=== PATIENT | male | born 1965 | race Caucasian/White ===

== ENCOUNTER → 2020-06-11 | Outpatient (CLI) | payer OTHER ==
--- NOTE | 2020-06-11 19:08 | MR ---
EXAMINATION TYPE: MR knee LT wo con DATE OF EXAM: 06/11/2020 COMPARISON: Radiograph 06/04/2020 HISTORY: 55-year-old male with left knee pain TECHNIQUE: Multiplanar, multisequence imaging of the left knee is performed without IV contrast. FINDINGS: The ACL, PCL, and MCL are intact. There is edema along the myotendinous junction of the popliteus and additional edema within its muscl e belly. Otherwise, the LCL complex appears intact. There is prominent degenerative signal throughout the lateral meniscus without discrete tear this antonio e. Overall lateral compartment articular cartilage is maintained. There is a complex, multidirectional tear extending throughout the medial meniscus. The body of the m edial meniscus is macerated. There is full-thickness cartilage defect along the mid to posterior weightbearing aspect of the media l femoral condyle measuring 4.5 mm wide and 1.7 cm AP. Underlying subchondral cystic change and mild edema. Additional moderate to severe irregular cartilage loss along the anterior to mid weightbearing aspect of the medial femoral condyle with flattening and irregularity of the subchondral bone, associated s ubchondral cystic change, and edema. Additional area of articular surface depression along the mid peripheral aspect of the medial femoral condyle. Moderate to severe cartilage loss along the superior half mid patella. Mild diffuse thinning along jazmyne th medial and lateral patellar facets. Edematous change within the suprapatellar fat pad. Extensor mechanism is intact. Nonspecific subcutaneous edema anteriorly. Small knee joint effusion. Moderate to large sized leaking Flores's cyst measuring 6.6 cm long by 3.5 cm wide.. Normal popliteal artery anatomy. Mild generalized muscle atrophy. No suspicious bone marrow placement . IMPRESSION: 1. Severe medial compartmental osteoarthrosis especially across the mid aspect of the medial femoral condyle with multiple areas of full-thickness cartilage loss. Accompanying irregularity of the subcho ndral bone plate and reactive marrow edema of the medial femoral condyle. 2. Complex tear throughout the medial meniscus. The body of the meniscus is diffusely macerated. 3. Severe cartilage loss along the superior half of the mid patella. 4. Mild to moderate popliteus muscle strain. 5. Moderate to large sized 6.6 cm leaking Flores's cyst. 6. Edema within the suprapatellar fat pad may be seen in the setting of fat pad impingement syndrome. Clinically correlate.
== END | disposition home or self-care (01) ==
LOC: RADMRIMAIN 13:08
PROVIDERS: ATTEND Orthopaedic Surgery
DX: S83.232A Complex tear of medial meniscus, current injury, left knee, initial encounter (principal); S86.812A Strain of other muscle(s) and tendon(s) at lower leg level, left leg, initial encounter; M17.12 Unilateral primary osteoarthritis, left knee; M71.22 Synovial cyst of popliteal space [Baker], left knee

== ENCOUNTER → 2020-11-20 | Outpatient (CLI) | payer OTHER ==
[2020-11-20 11:21] LABS: Basophils # (A) 0.1 k/uL (0-0.2); Basophils % (A) 1 %; Eosinophils # (A) 0.3 k/uL (0-0.7); Eosinophils % (A) 5 %; HCT 51.7 % (39.0-53.0); HGB 17.3 gm/dL (13.0-17.5); Lymphocytes # (A) 2.8 k/uL (1.0-4.8); Lymphocytes % (A) 42 %; MCH 32.9 pg (25.0-35.0); MCHC 33.5 g/dL (31.0-37.0); MCV 98.2 fL (80.0-100.0); Mean Platelet Volume 7.4; Monocytes # (A) 0.4 k/uL (0-1.0); Monocytes % (A) 6 %; Neutrophils # (A) 2.9 k/uL (1.3-7.7); Neutrophils % (A) 44 %; Platelet Count 230 k/uL (150-450); RBC 5.26 m/uL (4.30-5.90); RDW 13.2 % (11.5-15.5); WBC 6.6 k/uL (3.8-10.6)
[2020-11-20 11:36] LABS: Potassium 4.6 mmol/L (3.5-5.1)
== END | disposition home or self-care (01) ==
LOC: LABPAT 10:06
PROVIDERS: ATTEND Orthopaedic Surgery
DX: Z01.818 Encounter for other preprocedural examination (principal); M23.92 Unspecified internal derangement of left knee
CPT/HCPCS: 80051; 85025; 93005

== ENCOUNTER 2020-11-27 08:56 | Day surgery (SDC) | payer OTHER ==
[2020-11-26 08:17] VITALS: BMI 32.2
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
[~2020-11-27 08:56] MED LIST: DEXAMETHASONE SOD PHOSPHATE 4 MG/ML 1 ML VIAL IV PRN; LACTATED RINGERS 1,000 ML IV SCH; MIDAZOLAM 2 MG/2 ML VIAL IV PRN; ONDANSETRON 4 MG/2 ML VIAL IVP PRN; SCOPOLAMINE 1.5MG/72HR PATCH TRANSDERM PRN; ceFAZolin 3 GM in SODIUM CHLORIDE 0.9% 100 ML IVPB PRN
[2020-11-27] MEDS ORDERED: LIDOCAINE 1% (10MG/ML) FOR IV START INTRADERMA ONE (10:00)
[2020-11-27] MEDS ORDERED: fentaNYL (PF) 50 MCG/ML 2 ML AMP ONE (10:45)
[2020-11-27] MEDS ORDERED: KETOROLAC 15 MG/ML 1 ML VIAL ONE (10:45)
[2020-11-27] MEDS ORDERED: MIDAZOLAM 2 MG/2 ML VIAL ONE (10:45)
[2020-11-27] MEDS ORDERED: SUCCINYLCHOLINE CHLORIDE 100 MG/5 ML SYR IV ONE (10:45)
[2020-11-27] MEDS ORDERED: HYDROmorphone (PF) 1 MG/ML ONE (10:45)
[2020-11-27] MEDS ORDERED: LIDOCAINE 1% INJ 10MG/ML (20 ML MDV) ONE (10:45)
[2020-11-27] MEDS ORDERED: PROPOFOL 10 MG/ML 20 ML VIAL IV ONE (10:45)
[2020-11-27] MEDS ORDERED: EPINEPHrine (PF) 1 ML in SODIUM CHLORIDE 0.9% IRRIGATIO 3,000 ML IRRIGATION ONE ×4 (11:01)
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
[2020-11-27 11:36] VITALS: TEMP 98.9
[2020-11-27] MEDS: HYDROmorphone 0.5 MG/0.5 ML SYRINGE IVP PRN ×2 (11:43→11:53)
[2020-11-27] MEDS ORDERED: LACTATED RINGERS 1,000 ML IV ONE (12:13)
[2020-11-27 12:37] VITALS: PULSE 80; RESP 18
[2020-11-27 12:50] VITALS: BP 128/85
== END 2020-11-27 13:29 | disposition home or self-care (01) ==
LOC: OR 08:56
PROVIDERS: ATTEND Orthopaedic Surgery
DX: S83.242A Other tear of medial meniscus, current injury, left knee, initial encounter (principal); S83.32XA Tear of articular cartilage of left knee, current, initial encounter; V89.2XXA Person injured in unspecified motor-vehicle accident, traffic, initial encounter; M17.12 Unilateral primary osteoarthritis, left knee; J44.9 Chronic obstructive pulmonary disease, unspecified; Z79.1 Long term (current) use of non-steroidal anti-inflammatories (NSAID); Z79.891 Long term (current) use of opiate analgesic; Z79.899 Other long term (current) drug therapy
CPT/HCPCS: 29881; 29879; J2250; J1100; J0690; J2405; J0171; J2001; J3010; J1170 ×2; J1885; J0330; J2704

== ENCOUNTER → 2024-09-23 | Outpatient (CLI) | payer OTHER | END | disposition home or self-care (01) | LOC: LABPAT 09:13 | PROVIDERS: ATTEND Orthopaedic Surgery | DX: Z01.812 Encounter for preprocedural laboratory examination (principal); M17.12 Unilateral primary osteoarthritis, left knee; Z22.322 Carrier or suspected carrier of Methicillin resistant Staphylococcus aureus | CPT/HCPCS: 87070 ==

== ENCOUNTER 2024-10-01 10:37 | Day surgery (SDC) | payer OTHER ==
--- NOTE | 2024-09-30 08:48 | P.HPOR ---
History of Present Illness H&P Date: 09/30/24 Chief Complaint: Left knee pain The patient is a 59-year-old male who presents with progressive left knee pain for the past year worsening recently. He is having a difficult time with weightbearing activities along with stairs. He notes intermittent buckling and locking. He has tried therapy in addition to previous injections and medications with only temporary partial relief. He notes daily pain that limits his normal function and activities. Review of Systems Per HPI Past Medical History Past Medical History: COPD Medications and Allergies Home Medications Medication Instructions Recorded Confirmed Type Albuterol Inhaler [Ventolin Hfa 1 puff INHALATION DAILY PRN 11/26/20 11/27/20 History Inhaler] Cannabidiol (Cbd) [Epidiolex] 1 dose PO DAILY PRN 11/26/20 11/26/20 History HYDROcodone/APAP 10-325MG [[place] 1 tab PO DAILY PRN 11/26/20 11/26/20 History 10-325] Allergies Allergy/AdvReac Type Severity Reaction Status Date / Time No Known Allergies Allergy Verified 11/26/20 08:09 Physical Examination - Knee left Appearance: effusion Effusion grade: grade 1 Varus alignment in stance: 10 degrees Tenderness with palpation: anterior, medial Gait: limping ROM: extension: -15 degrees ROM: flexion: 130 degrees Crepitus with motion: Yes Strength: extension: 5/5 Strength: flexion: 5/5 Meniscal tests: medial meniscal tests: positive, medial joint line pain: pos itive Results The patient is a well-developed well-nourished male approximately 5 foot 11, 255 pounds of endomorphic habitus. HEENT exam is nonfocal, neck is supple. He has painless passive motion of the left hip. Straight leg raise is negative. He is tender about the medial joint line of the left knee. Collaterals are stable, Brendon's negative, Purnima's is equivocal. His distal neurovascular appears intact in the left lower extremity. - Diagnostic results Knee x-ray: image reviewed (X-rays of the left knee obtained the office show severe medial and patellofemoral compartment osteoarthrosis with [id number] changes and subchondral sclerosis.) Assessment and Plan Assessment: Left knee severe medial and patellofemoral compartment osteoarthrosis COPD Plan: I talked to the patient at length regarding his condition along with treatment options. At this point he is quite symptomatic having both pain and mechanical symptoms related to his left knee osteoarthrosis despite conservative measures. After a thorough discussion he opts to proceed with surgery. We will plan to proceed with left total knee arthroplasty. Risks and benefits were discussed at length in layman's terms. We will institute DVT prophylaxis postoperatively.
[2024-09-30 11:32] VITALS: BMI 35.8
[~2024-10-01 10:37] MED LIST changes: -DEXAMETHASONE SOD PHOSPHATE 4 MG/ML 1 ML VIAL IV PRN; +HYDROmorphone 0.5 MG/0.5 ML SYRINGE IVP PRN; -LACTATED RINGERS 1,000 ML IV SCH; -MIDAZOLAM 2 MG/2 ML VIAL IV PRN; -ONDANSETRON 4 MG/2 ML VIAL IVP PRN; -SCOPOLAMINE 1.5MG/72HR PATCH TRANSDERM PRN; +TRANEXAMIC 1,000 MG/100ML-NACL 1,000 MG in SALINE 1 100ML.BAG IVPB PRN; -ceFAZolin 3 GM in SODIUM CHLORIDE 0.9% 100 ML IVPB PRN
[2024-10-01] MEDS: ACETAMINOPHEN TAB 500 MG TAB PO PRN (11:19)
[2024-10-01] MEDS: LACTATED RINGERS 1,000 ML IV SCH (11:19)
[2024-10-01] MEDS: MELOXICAM 7.5 MG TAB PO PRN (11:20)
[2024-10-01] MEDS: SCOPOLAMINE 1 MG/72 HR PATCH TRANSDERM ONE (11:22)
[2024-10-01] MEDS: DEXAMETHASONE SOD PHOSPHATE 4 MG/ML 1 ML VIAL IV ONE (11:22)
[2024-10-01] MEDS: ONDANSETRON 4 MG/2 ML VIAL IVP ONE (11:22)
[2024-10-01] MEDS: IV FLUID CONTINUATION 1,000 ML IV ONE (11:25)
[2024-10-01] MEDS: MIDAZOLAM 2 MG/2 ML VIAL IV PRN (12:52)
[2024-10-01] MEDS: VANCOMYCIN 1,750 MG in SODIUM CHLORIDE 0.9% 500 ML 500 ML IVPB PRN (13:27)
[2024-10-01] MEDS ORDERED: SODIUM CHLORIDE 0.9% (PF) 10 ML VIAL ONE (13:59)
[2024-10-01] MEDS ORDERED: ePHEDrine 50 MG/ML 1 ML VIAL ONE (13:59)
[2024-10-01] MEDS ORDERED: ROPIVACAINE 5 MG/ML 30 ML VIAL ONE (13:59)
[2024-10-01] MEDS ORDERED: KETAMINE HCL IN 0.9 % NACL 50 MG/5 ML SYRINGE ONE (13:59)
[2024-10-01] MEDS ORDERED: TRANEXAMIC 1,000 MG/100ML-NACL PREMIX BAG ONE (13:59)
[2024-10-01] MEDS ORDERED: PHENYLEPHRINE 10 MG/ML VIAL ONE (13:59)
[2024-10-01] MEDS ORDERED: PROPOFOL 10 MG/ML 20 ML VIAL IV ONE (13:59)
[2024-10-01] MEDS ORDERED: fentaNYL (PF) 50 MCG/ML 2 ML AMP ONE (13:59)
[2024-10-01] MEDS ORDERED: MIDAZOLAM 2 MG/2 ML VIAL ONE (13:59)
[2024-10-01] MEDS: ceFAZolin 1,000 MG in SODIUM CHLORIDE 0.9% 1,000 ML IRRIGATION ONE (14:04)
[2024-10-01] MEDS: LACTATED RINGERS 1,000 ML IV ONE (14:53)
--- NOTE | 2024-10-01 15:42 | P.ANPRN ---
Procedure Note - Anesthesia - Nerve Block Performed Left Adductor Canal Infusion Time Out Performed: Yes (1252) Date of Procedure: 10/01/24 Procedure Start Time: 12:55 Procedure Stop Time: 13:08 Location of Patient: PreOp Indication: Acute Post-Operative Pain, Requested by Surgeon Sedation Type: Sedate with meaningful contact maintained Preparation: Sterile Prep, Sterile Dressing Position: Supine Catheter: Indwelling Needle Types: On-Q Needle Gauge: 18 Ultrasound used to visualize needle placement: Yes Ultrasound used to observe medication spread: Yes Injectate: 0.5% Ropivacaine (see comment for volume) (20 mL of block solution containing-10 mL of 0.5% ropivacaine mixed with 10 mL of preservative-free normal saline) Blood Aspirated: No Pain Paresthesia on Injection Noted: No Resistance on Injection: Normal Image Stored and Saved: Yes Events: Uneventful and Well Tolerated
--- NOTE | 2024-10-01 15:43 | P.ANPRN ---
Procedure Note - Anesthesia - Nerve Block Performed Left iPack Single Time Out Performed: Yes (1252) Date of Procedure: 10/01/24 Procedure Start Time: 12:55 Procedure Stop Time: 13:08 Location of Patient: PreOp Indication: Acute Post-Operative Pain, Requested by Surgeon Sedation Type: Sedate with meaningful contact maintained Preparation: Sterile Prep, Sterile Dressing Position: Supine Catheter: None Needle Types: Pajunk Needle Gauge: 21 Ultrasound used to visualize needle placement: Yes Ultrasound used to observe medication spread: Yes Injectate: 0.5% Ropivacaine (see comment for volume) (20 mL of block solution containing-10 mL of 0.5% ropivacaine mixed with 10 mL of preservative-free normal saline) Blood Aspirated: No Pain Paresthesia on Injection Noted: No Resistance on Injection: Normal Image Stored and Saved: Yes Events: Uneventful and Well Tolerated
[2024-10-01] MEDS ORDERED: HYDROmorphone 1 MG/ML 1 ML SYRINGE IVP PRN (15:52)
[2024-10-01] MEDS ORDERED: NALOXONE 0.4 MG/ML 1 ML VIAL IV PRN (15:52)
[2024-10-01] MEDS ORDERED: MAGNESIUM HYDROXIDE 2,400 MG/30 ML CUP PO PRN (15:53)
[2024-10-01] MEDS ORDERED: hydrOXYzine pamoate 25 MG CAP PO PRN (15:53)
[2024-10-01] MEDS ORDERED: ONDANSETRON 4 MG/2 ML VIAL IVP PRN (15:53)
[2024-10-01] MEDS ORDERED: oxyCODONE-APAP 7.5-325MG 1 EACH TAB PO PRN (15:57)
--- NOTE | 2024-10-01 16:22 | P.OP ---
Date of Procedure: 10/01/24 Preoperative Diagnosis: Left knee severe tricompartmental osteoarthrosis Postoperative Diagnosis: Same Procedure(s) Performed: Left total knee arthroplastyposterior stabilizedcemented Implants: DePuy attune size 6 cemented femoral component, size 6 cemented tibial component with a 14 x 50 mm stem, 9 mm articular surface, 35 mm cemented patellar component. This is a posterior stabilized implant. Anesthesia: regional, spinal Surgeon: Michael Russell Marketing Production Specialist #1: Олег Catalan Estimated Blood Loss (ml): 50 Pathology: none sent Condition: stable Disposition: PACU Indications for Procedure: The patient is a 59-year-old male who presents with progressive left knee pain secondary to osteoarthrosis despite conservative measures. A discussion of the risks and benefits of operative intervention versus continued conservative me asures was made with the patient. He opted proceed with surgery. Operative risks include infection, neurovascular injury, development of blood clots, fracture, possible component loosening/failure and possible need for subsequent procedures was discussed. Informed consent was obtained. Operative Findings: As below Description of Procedure: The patient was brought to the operating room, and after induction of spinal anesthesia the left lower extremity was prepped and draped in a normal fashion. The tourniquet was inflated to 270 mm marker. A longitudinal incision extending 3 finger breaths above the superior pole of patella extending to the medial aspect the tibial tubercle was then made. The skin and subcutaneous tissues were divided sharply. Electrocautery was used for hemostasis. A medial parapatellar arthrotomy was performed. The medial soft tissues to include the superficial and deep portions of the medial collateral ligament were elevated subperiosteally. The patella was everted. A portion of the retropatellar fat pad was excised sharply. The anterior cruciate ligament was sacrificed. Blunt retractors were placed. A starting hole was made in the distal femur 1 cm anterior to the posterior cruciate ligament origin. An intramedullary femoral guide was then inserted planning on 5 valgus distal cut with 9 mm distal resection. The cutting block was pinned in place. The distal cut was then made. The posterior referencing sizing guide was utilized. I felt size 6 was most appropriate. 3 of external rotation was built into the system and verified off the trans-epicondylar axis and the posterior condyles. The cutting block was pinned in place. The anterior, posterior, and chamfer cuts then made. Bone fragments were removed. The intercondylar guide was placed and the notch cut was made with a sagittal saw. The bone block was removed in one fragment. The trial component was then placed. There is good anterior to posterior and medial to lateral fit. The distal peg holes were drilled. The trial component was removed. Attention was then paid towards preparing the proximal tibia. An extra medullary guide was utilized in line with the tibial shaft and second metatarsal distally. I planned on 2 mm resection from the medial compartment. The cutting block was pinned in place. The proximal tibial cut was then made. The bone was removed in one fragment. The remnants of the medial and lateral menisci were excised at the capsular junction with electrocautery. The tibia sized most appropriately at size 6. The trial femoral and tibial components were placed along with a 9 mm articular surface. I was able to obtain full flexion and extension with internal and external rotation. After several flexion and extension cycles, the tibial rotation was marked with electrocautery line with the medial one third of the tibial tubercle. Attention was then paid towards preparing the patella. A patella reamer was utilized taking stem to 14 mm of bone stock. A good flush cut was made. The patella sized most appropriately 35 mm. The peg holes were drilled. The trial components placed. I had good patellofemoral tracking with no hands technique. The trial components were then removed. The tibia was prepared in the appropriate rotation with appropriate drill and keel punch planning on a 14 x 50 mm stem. The posterior osteophytes were removed with a curved osteotome. The flexion and extension gaps were checked and felt to be symmetric at 9 mm. A trial components were then removed. The bony surfaces were prepared with pulsatile lavage and dried. The tibial component was then cemented place was fully seated. Excess cement was removed. The femoral component cemented place and was fully seated. Excess cement was removed. The trial 9 mm articular surface was placed and the knee was put in full extension. The patella component was cemented place. After the cement had sufficiently hardened, the knee was again taken through a range of motion. Again I was able to obtain full flexion and extension with varus and valgus stress. The trial 9 mm articular surface was removed and the final one inserted. This was fully seated. Care was taken to avoid any soft tissue interposition. Pulsatile lavage was again utilized. The medial parapatellar arthrotomy was closed with #2 Ethibond suture. The tourniquet was deflated with approximately 60 minutes total tourniquet time. Final hemostasis was obtained with the cautery. There was minimal bleeding therefore a deep drain was not placed. The subcutaneous tissues were reapproximated with interrupted 2-0 Vicryl sutures. The skin was reapproximated with 3-0 subcuticular strata fix suture. Skin tape and adhesive was applied. A sterile dressing was applied. The patient was awoken from sedation and transferred to recovery room in good condition. Blood loss was estimated at 50 mL. No complications were incurred. Sponge and needle counts were correct at the end of the case. Олег MARTIN assisted during the major components of this case to include exposure, bone resection, implantation, and closure.
--- NOTE | 2024-10-01 16:45 | XR ---
EXAMINATION TYPE: XR knee limited LT DATE OF EXAM: 10/01/2024 4:36 PM COMPARISON: None. CLINICAL INDICATION: Male, 59 years old with history of Evaluation for Postop abnormality and alignme nt, TECHNIQUE: 2 view(s) obtained. FINDINGS: There is placement of tibial and femoral components. Postsurgical soft tissue changes are evident. No acute fractures are evident. No significant joint effusion is evident. IMPRESSION: 1. No acute fracture post left knee replacement [facility], , 10/01/2024 4:42 PM
[2024-10-01] MEDS: ROPIVACAINE 1,100 MG, SODIUM CHLORIDE 0.9% 500 ML 330 ML, EMPTY PAIN BALL 1 EACH MISCELLANE STA (16:59)
[2024-10-01 18:10] VITALS: RESP 17
[2024-10-01] MEDS: HYDROcodone/APAP 10-325MG 1 EACH TAB PO PRN (18:57)
[2024-10-01] MEDS ORDERED: ALBUTEROL NEBULIZED 2.5 MG/3 ML INHALATION PRN (19:54)
[2024-10-01] MEDS: SENNOSIDES-DOCUSATE SODIUM 1 EACH TAB PO SCH (20:01)
[2024-10-01] MEDS: HYDROmorphone 0.5 MG/0.5 ML SYRINGE IVP PRN (20:01)
--- NOTE | 2024-10-02 00:11 | P.CONS ---
History of Present Illness - Reason for Consult Consult date: 10/01/24 Medical management Requesting physician: Олег Catalan - Chief Complaint Left knee pain - History of Present Illness Patient is a 59-year-old male with asthma, hypertension and osteoarthritis of the left knee. The patient had chronic pain in his left knee. The pain was worsening since the past year, it had become more constant and had limited his daily activities. He started experiencing difficulty with weightbearing activities as well as while using stairs. He reported buckling and locking of the knee. He mentions trying physical therapy, medications as well as injections. Conservative management only relieved his pain partially and temporarily. He was diagnosed with left knee severe tricompartmental osteoarthritis and was counseled about surgical management. He opted to proceed with surgery. He underwent left total knee arthroplasty today that is posteriorly stabilized and cemented. He is seen in medical consultation for medical management. Currently he complains of postsurgical pain at the left knee. Denies pain at the left hip or ankle. Denies numbness or tingling. He has not had a bowel movement but has passed flatus post-surgery. Additionally, he mentions starting Losartan a week ago for hypertension. Denies fever, chills, chest pain, shortness of breath, cough, palpitations, abdominal pain, nausea, vomiting, hematuria, dysuria, hematochezia, melena, headache, slurred speech. Vitals on admission T 98.4 F, CO 98, RR 16, BP 159/90, O2 sat 97% on room air Review of systems: Pertinent positives and negatives as discussed in HPI, a complete review of systems was performed and all other systems are negative. Social history: Tobacco: Never smoker Alcohol: Denies use Recreational drugs: Denies use Travel: No recent travel history Sick contacts: None Physical examination: Vital signs reviewed General: nontoxic, no distress, appears at stated age, obese Derm: warm, dry, intact Head: atraumatic, normocephalic, symmetric Eyes: EOMI, anicteric sclera Mouth: no lip lesion, mucus membranes moist Cardiovascular: S1 S2 reg, no murmur Lungs: CTA bilateral, no rhonchi, no rales, no accessory muscle use Abdominal: soft, non-tender to palpation Extremities: No cyanosis, clubbing, or pedal edema, left knee bandaged, no bruising or redness at the surgical site Neuro: Alert, Oriented, strength 5/5 in b/l UE and right LE, strength 5/5 in left LE distally, limited proximally due to postsurgical pain Psych: well appearing, appropriate affect Assessment/Plan: The patient is a 59-year-old male with asthma, hypertension and osteoarthritis of the left knee. He is s/p left total knee arthroplasty- posteriorly stabilized-cemented POD #0. Medicine is consulted for medical management. #. Hypertension, controlled Continue home med Losartan 25 mg PO QAM #. mild persistent Asthma , compensated Continue home meds albuterol 1 puff daily as needed and Dulera 1 puff daily as needed #. Left knee severe tricompartmental osteoarthritis #. S/p Left total knee arthroplasty- posteriorly stabilized-cemented POD #0 Postsurgical knee x-ray shows no acute fracture post left knee replacement Currently on [place], Percocet and Dilaudid for pain management per primary felipe gical team, for pain management Currently on Senokot to each p.o. at bedtime and milk of magnesia 2400 mg p.o. daily as needed per primary surgical team, for constipation Currently on Zofran 4 mg IVP every 8 hours as needed, hydroxyzine 25 mg p.o. every 4 hours as needed per primary surgical team, for nausea and vomiting Currently on Xarelto 10 mg p.o. daily, tranexamic acid and cefazolin per primary surgical team DVT prophylaxis: Per primary surgical team GI prophyaxis: Pantoprazole 40 mg PO daily I have seen and evaluated the patient today. I Discussed the case with the resident and agree with the resident's findings I edited the assessment and plan as necessary as documented in the resident's note. Past Medical History Past Medical History: Asthma, COPD, Hypertension, Osteoarthritis (OA) History of Any Multi-Drug Resistant Organisms: None Reported Past Surgical History: Orthopedic Surgery Additional Past Surgical History / Comment(s): arthroscopy lt knee,sinus surgery Past Anesthesia/Blood Transfusion Reactions: No Reported Reaction Past Psychological History: No Psychological Hx Reported Smoking Status: Never smoker Past Alcohol Use History: Occasional Past Drug Use History: None Reported - Past Family History Mother Family Medical History: Cancer Father Family Medical History: Cancer Medications and Allergies Home Medications Medication Instructions Recorded Confirmed Type Albuterol Inhaler [Ventolin Hfa 1 puff INHALATION DAILY PRN 11/26/20 09/30/24 History Inhaler] HYDROcodone/APAP 10-325MG [[place] 1 tab PO QID PRN 11/26/20 09/30/24 History 10-325] Cholecalciferol [Vitamin D3 (25 50 mcg PO DAILY 09/30/24 09/30/24 History Mcg = 1000 Iu)] Losartan [Cozaar] 25 mg PO QAM 09/30/24 09/30/24 History Mometasone/Formoterol [Dulera 100 1 puff INHALATION DAILY PRN 09/30/24 09/30/24 History Mcg-5 Mcg Inhaler] Naproxen Sodium [Naproxen Sodium 750 mg PO BID 09/30/24 09/30/24 History CR] Allergies Allergy/AdvReac Type Severity Reaction Status Date / Time No Known Allergies Allergy Verified 10/01/24 10:52 Physical Exam Vitals: Vital Signs Temp Pulse Resp BP Pulse Ox 10/01/24 18:08 97.4 F L 84 17 118/80 98 10/01/24 17:30 78 16 121/73 100 10/01/24 17:15 80 18 114/69 97 10/01/24 17:00 76 18 119/70 98 10/01/24 16:45 75 16 114/65 97 10/01/24 16:30 81 14 107/60 99 10/01/24 16:18 97.0 F L 89 16 107/62 98 10/01/24 13:30 89 16 150/71 97 10/01/24 10:53 98.4 F 98 16 159/90 97 Intake and Output 10/01/24 10/01/24 10/01/24 06:59 14:59 22:59 Intake Total 1801 100 Output Total 50 Balance 1801 50 Intake: IV 1801 100 Output: Estimated Blood Loss 50 Other: Weight 116.8 kg 116.8 kg
[2024-10-02] MEDS: PANTOPRAZOLE 40 MG TABLET PO SCH (06:16)
--- NOTE | 2024-10-02 06:45 | P.PN ---
Progress Note - Text Progress Note Date: 10/02/24 patient was seen and evaluated at bedside. Status post postoperative day 1 for Left total knee arthroplasty patient had adductor canal catheter for postop pain control. Patient rated pain at rest 4 out of 10 in severity. Patient describes pain is aching, throbbing type on the sides of the knee and back of the knee. Patient started walking with support. With activity patient pain levels are 6-7 out of 10 in severity. With the help of oral pain medications pain levels are tolerable. Patient denied any weakness/ numbness in lower extremities. patient denied any fever, pain over the catheter site. Physical exam: Patient vital signs stable Patient is alert awake oriented 3 responding to all questions appropriately Examination of the catheter site showed dressing intact, no leaking fluid around the catheter, no redness, no tenderness over the catheter insertion area. plan: status post postoperative day 1 for left total knee arthroplasty with adductor canal catheter for pain control. Patient was discussed to continue the medication at the rate of 8 mL per hour until the pump is completely empty and instructed the patient how to discontinue the catheter.
[2024-10-02 08:09] VITALS: BP 127/80; PULSE 73; TEMP 98.1
[2024-10-02] MEDS: CHOLECALCIFEROL 25 MCG (1000 IU) TABLET PO SCH (08:27)
[2024-10-02] MEDS: RIVAROXABAN 10 MG TAB PO SCH (08:27)
[2024-10-02] MEDS: LOSARTAN 25 MG TAB PO SCH (08:27)
[2024-10-02 09:17] LABS: BUN/Creat Ratio 14.89 Ratio (12.00-20.00); Blood Urea Nitrogen 13.4 mg/dL (9.0-27.0); Calcium 8.9 mg/dL (8.7-10.3); Carbon Dioxide 23.9 mmol/L (21.6-31.8); Chloride 105 mmol/L (96-109); Glucose 112 mg/dL (70-110); Potassium 4.4 mmol/L (3.5-5.5); Sodium 140 mmol/L (135-145)
[2024-10-02 09:20] LABS: Basophils # (A) 0.03 X 10*3/uL (0.00-0.10); Basophils % (A) 0.3 %; Eosinophils # (A) 0.04 X 10*3/uL (0.04-0.35); Eosinophils % (A) 0.3 %; HGB 14.5 g/dL (13.0-17.0); Lymphocytes # (A) 2.58 X 10*3/uL (0.90-5.00); Mean Platelet Volume 10.8 FL (9.5-12.2); Monocytes # (A) 1.35 X 10*3/uL (0.20-1.00); Monocytes % (A) 11.5 %; NRBC Per 100 WBC 0 X 10*3/uL (0.00-0.01); Neutrophils # (A) 7.66 X 10*3/uL (1.80-7.70); Neutrophils % (A) 65.1 %; Platelet Count 204 X 10*3/uL (140-440); RBC 4.27 X 10*6/uL (4.40-5.60); WBC 11.75 X 10*3/uL (4.50-10.00)
[2024-10-02] MEDS: SYMBICORT 80-4.5 MCG INHALER INHALATION SCH (09:26)
--- NOTE | 2024-10-02 10:45 | P.PN ---
Subjective Progress Note Date: 10/02/24 Principal diagnosis: Status post left total knee arthroplasty Patient evaluated at bedside today, he is resting in his hospital chair. Patient is ambulated very well with therapy, utilizing a walker. He has been urinating with no issues. Patient denies any headaches, lightheadedness, chest pain or shortness of breath at this time Objective - Vital Signs Vital signs: Vital Signs Temp 98.1 F 10/02/24 06:00 Pulse 73 10/02/24 06:00 Resp 17 10/02/24 06:00 BP 127/80 10/02/24 06:00 Pulse Ox 94 L 10/02/24 06:00 FiO2 Intake & Output 10/01/24 10/02/24 10/02/24 18:59 06:59 18:59 Intake Total 1901 250 Output Total 50 1250 Balance 1851 -1250 250 Weight 116.8 kg Intake: IV 1901 Oral 250 Output: Urine 1250 Estimated Blood Loss 50 - Exam Left lower extremity: Incision is clean, dry, and intact. The exofin fusion tape is in good condition. There is minimal soft tissue swelling and ecchymosis surrounding the medial and lateral aspects of the incision. Calf is soft, no tenderness with palpation. Plantar flexion, dorsiflexion, EHL, FHL are intact. Sensory exam to light touch throughout the extremity is intact, dorsal pedis pulses 2+. - Labs CBC & Chem 7: 10/02/24 02:47 10/02/24 02:47 Labs: Abnormal Lab Results - Last 24 Hours (Table) 10/02/24 10/02/24 Range/Units 02:47 02:47 WBC 11.75 H (4.50-10.00) X 10*3/uL RBC 4.27 L (4.40-5.60) X 10*6/uL MCV 103.0 H (80.0-97.0) FL MCH 34.0 H (27.0-32.0) pg Immature Gran # 0.09 H (0.00-0.04) X 10*3/uL Monocytes # 1.35 H (0.20-1.00) X 10*3/uL Glucose 112 H (70-110) mg/dL Assessment and Plan Assessment: Postoperative day #1 status post left total knee arthroplasty Plan: Pain control, patient does take [place] 10 mg / 325 mg DVT prophylaxis, Eliquis 5 mg daily for 12 days Home PT/nursing after discharge Icing and elevating techniques discussed, showering instructions discussed Medical recommendations appreciated Discharge planning: Patient stable for discharged home today Time with Patient: Less than 30
--- NOTE | 2024-10-02 10:48 | P.DS ---
Providers Date of admission: 10/01/2024 Expected date of discharge: 10/02/24 Attending physician: Michael Russell Consults: 10/01/24 15:53 Consult Physician Routine Consulting Provider: Meredith Vann Consult Reason/Comments: medical management s/p left total knee arthroplasty Do you want consulting provider notified?: Yes Primary care physician: [facility] Hospital Course: Date of admission: 10/01/2024 Date of discharge: 10/02/2024 Admission diagnosis: Status post left total knee arthroplasty Discharge diagnosis: Same Attending physician: Dr. Russell Surgical procedures: Left total knee arthroplasty Brief history: Patient is a 59-year-old male with a history of progressive primary left knee osteoarthritis. At this point patient has failed conservative treatment measures and has opted to proceed with a elective left total knee arthroplasty. Hospital course: Details of patient's surgery can be found in operative report. Patient tolerated the procedure well and was subsequently transported to orthopedic floor. Patient's orthopeidc and medical care was provided daily. Patient had daily laboratory tests performed for evaluation of overall blood counts. Patient had daily physical therapy to include strengthening range of motion as well as education with walker ambulation. Patient was treated with Xarelto for their postoperative DVT prophylaxis during their inpatient stay. Patient was noted to have a relatively uneventful postoperative course. Patient reported satisfactory pain control with oral pain medications by postoperative day 0. Patient showed satisfactory progress with physical therapy. Patient moved steadily through the program and had no difficulty meeting the goals by postoperative day 1. Given patient's otherwise satisfactory course and having met physical therapy goals, plan is to discharge patient home on postoperative day 1. Discharge condition/disposition: Patient will be discharged home in stable condition. Discharge medications: Instructions are given on resumption of patient's normal daily medications per primary care recommendation, in addition patient will be prescribed Eliquis 5 mg. Discharge instructions: 1. Wound care and infection precautions, keep incision dry and covered while showering, no lotions, creams, moisturizers. No soaking, tubs, pools, hottubs. Do not scrub over the incision. 2. Weight-bear as tolerated with walker / cane until follow-up. 3. Ice and elevate when necessary. Do not exceed 20 minutes per hour with ice pack. 4. Utilize compression sleeve until seen at first follow up appointment. 5. Visiting nursing care. 6. Home physical therapy including home CPM. 7. Pain meds and anticoagulants per prescription. 8. Pain medication has potential to cause constipation. Increase oral fluid and fiber intake. Contact primary care provider if you have not had a bowel movement within 48 hours after discharge 9. No anti-inflammatory medication until discussed at first post operative visit, this including Motrin, Aleve, Mobic, Diclofenac. 10. Follow up in office at 2 weeks postop with Brice Wheeler PA-C/Олег Blanca 11. Follow up with your primary care doctor 7-10 days after discharge. 12. Contact [facility] with any questions, . Procedures: Left total knee arthroplasty Patient Condition at Discharge: Good Plan - Discharge Summary Discharge Rx Participant: No New Discharge Prescriptions: New Apixaban [Eliquis] 5 mg PO DAILY #30 tablet No Action HYDROcodone/APAP 10-325MG [[place] 10-325] 1 tab PO QID PRN PRN Reason: Pain Albuterol Inhaler [Ventolin Hfa Inhaler] 1 puff INHALATION DAILY PRN PRN Reason: Dyspnea Naproxen Sodium [Naproxen Sodium CR] 750 mg PO BID Losartan [Cozaar] 25 mg PO QAM Mometasone/Formoterol [Dulera 100 Mcg-5 Mcg Inhaler] 1 puff INHALATION DAILY PRN PRN Reason: sob Cholecalciferol [Vitamin D3 (25 Mcg = 1000 Iu)] 50 mcg PO DAILY Discharge Medication List Albuterol Inhaler [Ventolin Hfa Inhaler] 1 puff INHALATION DAILY PRN 11/26/20 [History] HYDROcodone/APAP 10-325MG [[place] 10-325] 1 tab PO QID PRN 11/26/20 [History] Cholecalciferol [Vitamin D3 (25 Mcg = 1000 Iu)] 50 mcg PO DAILY 09/30/24 [History] Losartan [Cozaar] 25 mg PO QAM 09/30/24 [History] Mometasone/Formoterol [Dulera 100 Mcg-5 Mcg Inhaler] 1 puff INHALATION DAILY PRN 09/30/24 [History] Naproxen Sodium [Naproxen Sodium CR] 750 mg PO BID 09/30/24 [History] Apixaban [Eliquis] 5 mg PO DAILY #30 tablet 10/02/24 [Rx] Follow up Appointment(s)/Referral(s): Олег Catalan, IVA [PHYSICIAN SALES PROFESSIONAL] - 10/17/24 8:40 am Patient Instructions/Handouts: *Surgery [facility] - On-Q Pain Pump Discharge Instructions, Knee Replacement (GEN) Activity/Diet/Wound Care/Special Instructions: Orthopedic Discharge Instructions: 1. Wound care and infection precautions, keep incision dry and covered while showering, no lotions, creams, moisturizers. No soaking, pools, hot tubs. Do not scrub over incision. 2. Weight-bear as tolerated with walker / cane until follow-up. 3. Ice and elevate when necessary. Do not exceed 20 minutes per hour with ice pack. 4. Utilize compression sleeve until seen at first follow up appointment. 5. Pain meds and anticoagulants per prescription. 6. Pain medication has potential to cause constipation. Increase oral fluid and fiber intake. Contact primary care provider if you have not had a bowel movement within 48 hours after discharge. 7. No anti-inflammatory medication until discussed at first post operative visit, this including Motrin, Aleve, Mobic, Diclofenac. 8. Follow up in office at 2 weeks postop with Brice Wheeler PA-C / Олег Catalan PA-C 9. Follow up with your primary care doctor 7-10 days after discharge. 10. Contact [facility] with any questions, . Keep incision clean, dry, intact. While showering, cover fusion tape with Saran wrap. Keep fusion tape on until follow-up appointment office in 2 weeks. Discharge Disposition: HOME WITH HOME HEALTH SERVICES
--- NOTE | 2024-10-02 11:20 | P.PN ---
Subjective Progress Note Date: 10/02/24 Hospital course: Patient is a very pleasant 59-year-old male with a past medical history of asthma, hypertension, and osteoarthritis. He is currently admitted under orthopedic surgery team status post left total knee arthroplasty. Surgical procedure was completed by Dr. Russell. We were consulted for medical management throughout hospitalization. Physical exam: Patient seen and fully evaluated at bedside this morning. He is postoperative day 1 and appears to be doing well. Patient reports moderate postoperative pain and tightness, but states nothing more than he expected. He denies having any other complaints including headache, lightheadedness, dizziness, chest pain, palpitations, shortness of breath, postoperative nausea or vomiting, or experiencing any difficulties with urinary function. Patient reports he feels good and cannot wait to get home. Vital signs reviewed and stable. General: Nontoxic, no distress and appears stated age. Derm: Skin warm and dry, normal coloration for ethnicity. Head: Atraumatic, normocephalic and symmetric. Eyes: EOM's intact, no lid lag, and anicteric sclera Mouth: no lip lesions, mucus membranes moist Cardiovascular: regular rate and rhythm with normal S1S2, no murmur, positive posterior tibial pulses bilaterally, and cap refill < 2 seconds. Lungs: Respirations even, regular, and unlabored on room air. Lungs CTA bilaterally, no rhonchi, no rales, no wheezing, and no accessory muscle usage. Abdominal: soft, nontender to palpation, no guarding, no appreciable organomegaly Ext: No gross muscle atrophy, no edema, no contractures. Movement and sensation intact. Postoperative dressing/Jozef wrap and ice pack in place to left knee. Neuro: Speech clear, face symmetrical and CN II-XII grossly intact with no noted focal neuro deficits Psych: Alert and oriented to person, place, time, and situation. Appropriate and pleasant affect. Assessment and Plan of Care: Status post left total knee arthroplasty Management per primary admitting orthopedic surgery team including DVT prophylaxis, pain management, wound/dressing management, weightbearing, and PT/OT. Currently on DVT prophylaxis with Xarelto. Leukocytosis -Postoperative leukocytosis with WBC count of 11.75 is an expected and stable finding. No signs of infection. Leukocytosis reactive secondary to recent surgical procedure. Hypertension -Monitor vital signs and patient to continue daily medication regimen with losartan 25 mg daily. Asthma, mild persistent -Patient with a history of mild persistent asthma, not in exacerbation. Patient to continue with Symbicort 80-4.5 mcg inhaler 1 puff daily (in substitution of Dulera per hospital availability) and as needed albuterol inhaler wheezing/shortness of breath. Data and imaging reviewed: Postoperative labs reviewed. CBC showing mild leukocytosis with WBC count of 11.75 and macrocytosis with MCV of 103.0. BMP unremarkable. Glucose 112. Vital signs reviewed. Blood pressure 127/80, heart rate 73, respiratory rate 17, temp 98.1 F, and SpO2 of 94% on room air. Patient is medically optimized for discharge once cleared by primary admitting orthopedic surgery team. Thank you for allowing us to participate in the care of this pleasant patient. Do not hesitate to contact us with questions. Someone can be reached from the [facility] hospitalist group all hours of the day at [phone] or via [employer]. This document was prepared using [employer] dictation software. Please allow for errors in window installation subcontractor, while rare they do occur. jP Méndez NP rendered care for this patient independently, reviewed the findings and plan as documented in the note above and agree with plan. I did not physically speak with or examine the patient on this date. Objective - Vital Signs Vital signs: Vital Signs Temp 98.1 F 10/02/24 06:00 Pulse 73 10/02/24 06:00 Resp 17 10/02/24 06:00 BP 127/80 10/02/24 06:00 Pulse Ox 94 L 10/02/24 06:00 FiO2 Intake & Output 10/01/24 10/02/24 10/02/24 18:59 06:59 18:59 Intake Total 1901 Output Total 50 1250 Balance 1851 -1250 Weight 116.8 kg Intake: IV 1901 Output: Urine 1250 Estimated Blood Loss 50 - Labs CBC & Chem 7: 10/02/24 02:47 10/02/24 02:47
== END 2024-10-02 12:45 | disposition home health service (06) ==
LOC: OR 10:37 → 4SSUR 16:00 → OR 10-02 12:45
PROVIDERS: ATTEND Orthopaedic Surgery
DX: M17.12 Unilateral primary osteoarthritis, left knee (principal); G89.18 Other acute postprocedural pain; I10 Essential (primary) hypertension; J44.89 Other specified chronic obstructive pulmonary disease; J45.30 Mild persistent asthma, uncomplicated; D72.829 Elevated white blood cell count, unspecified; D75.89 Other specified diseases of blood and blood-forming organs; Z79.51 Long term (current) use of inhaled steroids; Z79.899 Other long term (current) drug therapy; Z88.8 Allergy status to other drugs, medicaments and biological substances
CPT/HCPCS: 27447; 94640; 97161; 64999; 64448; 80048; 85025; 73560; C1713 ×2; C1776; C1751; J2250; J3370; J1100; J0690 ×3; J2405; J2795; J1171 ×2